=== PATIENT | male | born 1955 | race Caucasian/White ===

== ENCOUNTER → 2022-07-01 | Day surgery (SDC) | payer OTHER ==
[2022-06-25 10:05] LABS: ALBUMIN 3.9 G/DL (3.4-5.0); ALBUMIN/GLOBULIN RATIO 1.1 (1.1-1.5); ALKALINE PHOSPHATASE 75 IU/L (46-116); BLOOD UREA NITROGEN 11 MG/DL (7-18); BUN/CREATININE RATIO 15.1 (5.4-32.0); CALCIUM 9.8 MG/DL (8.5-10.1); CHLORIDE 103 MMOL/L (99-107); CREATININE 0.73 MG/DL (0.60-1.10); PRE OP ALT 35 U/L (30-65); PRE OP ANION GAP 5 (8-16); PRE OP AST 31 U/L (10-37); PRE OP BILIRUB, TOTAL 0.4 MG/DL (0.0-1.0); PRE OP GLUCOSE 104 MG/DL (70-104); PRE OP POTASSIUM 4.2 MMOL/L (3.4-5.1); PRE OP SODIUM 138 MMOL/L (135-145); TOTAL CARBON DIOXIDE 30.3 MMOL/L (24-32); TOTAL PROTEIN 7.5 G/DL (6.4-8.2); eGFR > 90 ML/MIN
[2022-06-25 10:50] LABS: BASOPHILS % (AUTO) 0.6 % (0-1); EOSINOPHILS % (AUTO) 0.4 % (0-6); LYMPHOCYTES # (AUTO) 1.2 X10'3 (1.1-4.8); LYMPHOCYTES % (AUTO) 16.2 % (21-51); MEAN CORPUSCULAR HEMOGLOBIN 37.6 PG (27.0-31.0); MEAN CORPUSCULAR HGB CONC 36.1 g/dL (33.0-36.5); MEAN PLATELET VOLUME 6.2 FL (7.4-10.4); MONOCYTES # (AUTO) 0.5 X10'3 (0-0.9); MONOCYTES % (AUTO) 7.3 % (2-12); NEUTROPHILS # (AUTO) 5.4 X10'3 (1.8-7.7); NEUTROPHILS % (AUTO) 75.5 % (42-75); PLATELET ESTIMATE NORMAL; PRE OP HEMATOCRIT 44.2 % (42.0-52.0); PRE OP PLATELET COUNT 245 X10'3 (140-440); RED BLOOD COUNT 4.25 X10'6 (4.70-6.10); RED CELL DISTRIBUTION WIDTH 12.5 % (11.5-14.5); SPHEROCYTES 1+
[~2022-07-01] VITALS: Ht 188 cm; Wt 73.5 kg
[2022-07-01] VITALS (13 sets, daily range): BP systolic 119–145; BP diastolic 70–87
[~2022-07-01] MED LIST: BUPIVAcaine/PF 2.5mg/ml (0.25%) 10ml vial ONE; HYDROcodone/acetaminophen 5mg/325mg tablet PO PRN; LIDOcaine 1% 30ml preserv. free vial ONE; LIDOcaine 2% (20mg/ml) 5ml vial ONE; MULT-1085 PO; VITA-268 PO; acetaminophen 1,000mg/100ml IV 100 ML IV ONE; ceFAZolin inj. 2,000 MG in dextrose 5%-water 100 ML IV ONE; dexamethasone sod phosphate 4mg/ml inj. ONE; famotidine 20mg tablet PO ONE; fentaNYL/PF 50MCG/1 ML 2ML syringe ONE; glycopyrrolate 0.2mg/ml inj ONE; meperidine/PF 25mg/ml syringe IV PRN; meperidine/PF 25mg/ml syringe ONE; midazolam 1 mg/ML 2ml injection ONE; morphine 2 MG/ML inj. syringe IV PRN; morphine 4 MG/ML inj SYRINge IV PRN; neostigmine methylsulfate 1 MG/ML 10ml vial ONE; ondansetron/PF 4mg/2ml inj IV PRN; ondansetron/PF 4mg/2ml inj ONE; proCHLORperazine 10 MG/2 ml inj IV PRN; propofol inj 20 ML IV ONE; ringers solution, lacted 1,000 ML IV SCH; rocuronium 10mg/ml inj IV ONE
--- NOTE | 2022-07-01 12:44 | NUR ---
PT UP AND DRESSED, TO THE BATHROOM WITH NO RESULTS. PT PACING IN THE PACU, ORAL FLUIDS AND IV FLUIDS INFUSING.
--- NOTE | 2022-07-01 14:00 | NUR ---
PT ASK TO GO TO THE WAITING ROOM WITH HIS , HE PREFERS TO USE THE TOLIET BY THE LOBBY FOR PRIVACY. STATES SHE WILL STAY WILL HIM, PT IS STEADY ON HIS FEET.
--- NOTE | 2022-07-01 15:00 | NUR ---
PT BACK TO PACU, BLADDER SCAN COMPLETED TOTAL FLUID 189. PT GIVEN ADDITIONAL WATER AND IV FLUIDS, AWAITING RESULTS. PT ASKING TO JUST LEAVE WITHOUT THE VAZQUEZ, STATES HE USUALLY DOES NOT URINATE A LOT DURING THE DAY AND DOES NOT WANT TO WAIT. DR COOPER REMAINS IN SURGERY, WILL DISCUSS WITH HIM WHEN HE RETURNS TO THE RECOVERY ROOM, FOR NOW PATIENT AGREES TO STAY. AT BEDSIDE
--- NOTE | 2022-07-01 15:39 | NUR ---
DR COOPER AT BEDSIDE, EXPLAINED IMPORTANCE OF URINATION. PT STILL INSISTING TO BE DISCHARGE HOME. DISCHARGE INSTRUCTIONS GIVEN TO AND PATIENT. BOTH VERBALIZED UNDERSTANDING. PT INFORMED TO GO TO THE EMERGENCY ROOM IF HE IS UNABLE TO URINATE WITHIN THE NEXT 1 HOUR. AND PATIENT BOTH STATED HE WOULD GO TO THE EMERGENCY ROOM IF HE IS UNABLE URINATE. DOCTOR COOPER STATED PT CAN LEAVE IF HE WISHES. IV D/[employer] CATHETER INTACT. COBAN APPLIED. PT TAKEN IN WHEELCHAIR TO FRONT LOBBY, WENT TO PARKING GARAGE TO GET CAR. PT DISCHARGE IN STABLE CONDITION WITH DRIVING PT HOME.
== END | disposition home or self-care (01) ==
LOC: PAS 09:42
PROVIDERS: ATTEND Surgery
DX: K40.90 Unilateral inguinal hernia, without obstruction or gangrene, not specified as recurrent (principal); F17.210 Nicotine dependence, cigarettes, uncomplicated; Z72.89 Other problems related to lifestyle; Z79.899 Other long term (current) drug therapy; Z98.890 Other specified postprocedural states
CPT/HCPCS: 36415; 49650; 80053; 82948; 85025; 93005; C1781; J0131; J0690; J1100; J2175; J2250; J2405; J2704; J2710; J3010; J3490; J7030; J7060; J7120; S2900; Z7506; Z7508; 85008; A4215; A4618

== ENCOUNTER 2024-02-10 02:23 | Emergency (ER) | payer OTHER, MEDICARE ==
[~2024-02-10] VITALS: Ht 188 cm; Wt 90.9 kg
[~2024-02-10 02:23] MED LIST changes: +BUDE10.22 INH; -BUPIVAcaine/PF 2.5mg/ml (0.25%) 10ml vial ONE; -HYDROcodone/acetaminophen 5mg/325mg tablet PO PRN; +LACT1CAP26 PO; -LIDOcaine 1% 30ml preserv. free vial ONE; -LIDOcaine 2% (20mg/ml) 5ml vial ONE; -acetaminophen 1,000mg/100ml IV 100 ML IV ONE; -ceFAZolin inj. 2,000 MG in dextrose 5%-water 100 ML IV ONE; -dexamethasone sod phosphate 4mg/ml inj. ONE; -famotidine 20mg tablet PO ONE; -fentaNYL/PF 50MCG/1 ML 2ML syringe ONE; -glycopyrrolate 0.2mg/ml inj ONE; -meperidine/PF 25mg/ml syringe IV PRN; -meperidine/PF 25mg/ml syringe ONE; -midazolam 1 mg/ML 2ml injection ONE; -morphine 2 MG/ML inj. syringe IV PRN; -morphine 4 MG/ML inj SYRINge IV PRN; -neostigmine methylsulfate 1 MG/ML 10ml vial ONE; -ondansetron/PF 4mg/2ml inj IV PRN; -ondansetron/PF 4mg/2ml inj ONE; -proCHLORperazine 10 MG/2 ml inj IV PRN; -propofol inj 20 ML IV ONE; -ringers solution, lacted 1,000 ML IV SCH; -rocuronium 10mg/ml inj IV ONE
[2024-02-10] MEDS: normal saline 1000ml 1,000 ML IV ONE ×2 (02:39→02:40)
[2024-02-10] MEDS: NORepinephrine 8mg/ 250ml NS 250 ML IV PRN (02:41)
[2024-02-10] MEDS ORDERED: ceFAZolin/D5W- 1GM premix 50 ML IV SCH ×3 (03:00→08:00)
[2024-02-10] MEDS ORDERED: dextrose 50%-water 50ml dispensing syringe IV ONE (03:00)
[2024-02-10 03:09] VITALS: BP 92/42
[2024-02-10] MEDS ORDERED: epiNEPHrine inj 5 MG in normal saline 250ml IV soln 245 ML IV PRN (03:10)
[2024-02-10 03:25] VITALS: PULSE 86; RESP 20; O2SAT 73
[2024-02-10 03:28] LABS: HEMATOCRIT 33.1 % (42.0-52.0); HEMOGLOBIN 10.1 g/dl (14.0-17.9); MEAN CORPUSCULAR HEMOGLOBIN 37.9 PG (27.0-31.0); MEAN CORPUSCULAR HGB CONC 30.5 g/dL (33.0-36.5); MEAN CORPUSCULAR VOLUME 124.1 FL (78-98); MEAN PLATELET VOLUME 9.3 FL (7.4-10.4); PLATELET COUNT 239 X10'3 (140-440); RED BLOOD COUNT 2.67 X10'6 (4.70-6.10); RED CELL DISTRIBUTION WIDTH 17.9 % (11.5-14.5); WHITE BLOOD COUNT 11.4 X10'3 (4.5-11.0)
[2024-02-10 03:35] LABS: ALANINE AMINOTRANSFERASE 207 U/L (12-78); ALBUMIN 1.1 G/DL (3.4-5.0); ALBUMIN/GLOBULIN RATIO 0.3 (1.1-1.5); ALKALINE PHOSPHATASE 98 IU/L (46-116); BLOOD UREA NITROGEN 43 MG/DL (7-18); BUN/CREATININE RATIO 19.5 (10.0-20.0); CALCIUM 9.6 MG/DL (8.5-10.1); CHLORIDE 92 MMOL/L (99-107); CREATININE 2.21 MG/DL (0.60-1.10); GLUCOSE 135 MG/DL (70-104); PRO BRAIN NATRIURETIC PEPTIDE 9003 PG/ML (0-125); TOTAL PROTEIN 4.3 G/DL (6.4-8.2); eCRCL 37 ML/MIN; eGFR 30 ML/MIN
[2024-02-10 03:41] LABS: ASPARTATE AMINO TRANSFERASE 1684 U/L (10-37)
[2024-02-10 03:47] LABS: TOTAL CARBON DIOXIDE 11.8 MMOL/L (24-32)
[2024-02-10 03:52] LABS: TOTAL CELLS COUNTED 100
[2024-02-10 03:53] LABS: ANISOCYTOSIS 1+; BURR CELLS FEW; PLATELET ESTIMATE NORMAL
[2024-02-10 04:05] LABS: ANION GAP 26 (8-16); SODIUM 130 MMOL/L (135-145)
[2024-02-10] MEDS ORDERED: NORepinephrine 8mg/ 250ml NS 250 ML IV PRN (04:44)
[2024-02-13 11:37] LABS: MODE RESUS BAG
[2024-02-13 11:38] LABS: ABG PCO2 (T) 72.4 mmHg (35.0-48.0); ABG PH (T) < 6.670 (7.340-7.440); ABG PO2 (T) 38.8 mmHg (75.0-100.0); FCOHb 0.3 % (0.0-3.9); FMetHb 1.1 % (0.0-1.5); FO2Hb 45.9 % (94-97); TOTAL HEMOGLOBIN 9.3 G/dl (14.0-17.9)
[2024-02-13 11:39] LABS: ABG OXYGEN SATURATION 46.6 % (94-97); FHHb 52.7 % (0.0-5.0)
== END 2024-02-10 05:26 ==
LOC: ER 02:24
DX: I46.9 Cardiac arrest, cause unspecified (principal); J44.9 Chronic obstructive pulmonary disease, unspecified; Z79.899 Other long term (current) drug therapy
CPT/HCPCS: 31500; 36415; 36600; 71045; 80053; 82803; 82948; 83605; 83880; 84145; 84484; 85007; 85018; 85025; 92950; 93005; 99285; J0171; J3490; J7030; J7050; J7060; 94002; 94760; A4340; C1758